=== PATIENT | female | born 1980 | race Caucasian/White ===

== ENCOUNTER → 2024-02-14 08:56 | Outpatient (BNVA) | payer OTHER, SELFPAY | PROVIDERS: PCP Family Medicine; Visit Provider Psychiatry & Neurology Neurology | DX: G45.9 Transient cerebral ischemic attack, unspecified (principal) | CPT/HCPCS: 36415; 81241; 82306; 82607; 82746; 83090; 83735; 83921; 84439; 84443; 84481; 85210; 85300; 85305; 85613; 85730; 86140; 86146; 86147; 86376 ==

== ENCOUNTER 2024-02-26 14:11 | Outpatient (CLI) | payer OTHER, SELFPAY ==
--- NOTE | 2024-02-26 14:15 | CTR_ITS ---
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 Exam focused on the arteries. 3D rendering (Not supervised by radiologist): MIP and/or 3D reconstructed images were created by the technologist. Total images: 189 Radiation optimization: All CT scans at this facility use at least one of these dose optimization techniques: automated exposure control; mA and/or kV adjustment per patient size (includes targeted exams where dose is matched to clinical indication); or iterative reconstruction. Contrast material: OMNI 350; Contrast volume: 100 ml; Contrast route: INTRAVENOUS (IV); COMPARISON: MR head wo con* [id number] 03/15/2023 4:14 PM RADIATION DOSE METRICS: Total DLP (mGy-cm): 1178.43 FINDINGS: ANTERIOR CIRCULATION: Right internal carotid artery: Intracranial segment is patent with no significant stenosis. No aneurysm. Right middle cerebral artery: No occlusion or significant stenosis. No aneurysm. Right anterior cerebral artery: No occlusion or significant stenosis. No aneurysm. Left internal carotid artery: Intracranial segment is patent with no significant stenosis. No aneurysm. Left middle cerebral artery: No occlusion or significant stenosis. No aneurysm. Left anterior cerebral artery: No occlusion or significant stenosis. No aneurysm. POSTERIOR CIRCULATION: Right vertebral artery: No occlusion or significant stenosis. No aneurysm. Left vertebral artery: No occlusion or significant stenosis. No aneurysm. Basilar artery: No occlusion or significant stenosis. No aneurysm. Right posterior cerebral artery: No occlusion or significant stenosis. No aneurysm. Left posterior cerebral artery: No occlusion or significant stenosis. No aneurysm. Brain: No definite mass, mass effect, or midline shift. Cerebral ventricles: No ventriculomegaly. Paranasal sinuses: Benign mucous retention cyst in the paranasal sinuses. Bones/joints: Unremarkable. No acute fracture. 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 Exam focused on the cervical segments of the vasculature. 3D rendering (Not supervised by radiologist): MIP and/or 3D reconstructed images were created by the technologist. Radiation optimization: All CT scans at this facility use at least one of these dose optimization techniques: automated exposure control; mA and/or kV adjustment per patient size (includes targeted exams where dose is matched to clinical indication); or iterative reconstruction. Contrast material: OMNI 350; Contrast volume: 100 ml; Contrast route: INTRAVENOUS (IV); COMPARISON: MR head wo con* [id number] 03/15/2023 4:14 PM RADIATION DOSE METRICS: Total DLP (mGy-cm): 1178.43 FINDINGS: Right common carotid artery: No stenosis. No dissection or occlusion. Right internal carotid artery: No stenosis of the extracranial segment. No dissection or occlusion. Right external carotid artery: No occlusion or stenosis of the origin. Left common carotid artery: No stenosis. No dissection or occlusion. Left internal carotid artery: No stenosis of the extracranial segment. No dissection or occlusion. Left external carotid artery: No occlusion or stenosis of the origin. Right vertebral artery: No stenosis. No dissection or occlusion. Left vertebral artery: No stenosis. No dissection or occlusion. Soft tissues: Normal. No significant soft tissue swelling. Bones/joints: No acute fracture. CT/CT angio headneck* [id number] IMPRESSION: 1. No acute intracranial pathology detected. 2. No hemodynamically significant stenosis, vascular occlusions, aneurysm, dissection, nor AV malformation. IMPRESSION: No stenosis or occlusion. REFERENCES: NASCET CRITERIA. The degree of stenosis in the cervical segment of the internal carotid artery is based on NASCET criteria. Normal is no stenosis. Mild is less than 50% stenosis. Moderate is 50-69% stenosis. Severe is 70% to 99% stenosis. Total occlusion is no detectable patent lumen.
[2024-02-26] MEDS: iohexol 350 mg/mL 500 mL Btl (per mL) IV (15:28)
== END 2024-02-26 14:12 | disposition home or self-care (01) ==
LOC: RAD 14:12
PROVIDERS: PCP Family Medicine; Visit Provider Psychiatry & Neurology Neurology
DX: G45.9 Transient cerebral ischemic attack, unspecified (principal)
CPT/HCPCS: 36415; 70496; 70498; 81241; 82306; 82607; 82746; 83090; 83735; 83921; 84439; 84443; 84481; 85210; 85300; 85305; 85613; 85730; 86140; 86146; 86147; 86376; Q9967

== ENCOUNTER 2024-03-05 12:45 | Outpatient (CLI) | payer OTHER, SELFPAY ==
--- NOTE | 2024-03-05 12:45 | USCV_ITS ---
Felicia Morales Age: 44 Gender: F : 1980 Exam Date: 03/05/2024 12:46 Ordering Phys: Amilcar Concepcion MD Technologist: CT Exam Location: [facility] [place]_ Indication: syncope,tia BP: 126 / 67 HR: 56 Rhythm: Sinus Technical Quality: Adequate MEASUREMENTS (Male / Female) Normal Values 2D ECHO LVOT Diameter 2.0 cm LV Ejection Fraction MOD 4C 58.9 % LV Ejection Fraction MOD 2C 49.3 % LV Ejection Fraction 2C AL 46.8 % LA Diameter 2.9 cm LA Sys Volume AL 56.7 cm cubed LA Sys Volume Index AL 24.5 cm cubed/m squared Aorta at Sinotubular Diameter 2.1 cm IVC Diameter 1.9 cm M-MODE LA Ao Ratio MM 1.4 AV Cusp Separation MM 2.4 cm DOPPLER AV Peak Velocity 159.0 cm/s LVOT Peak Velocity 124.0 cm/s AV Area Cont Eq vti 2.9 cm squared AV Area Cont Eq pk 2.5 cm squared MV Peak Velocity 109.0 cm/s MV Area PHT 3.4 cm squared Mitral E to A Ratio 1.7 TR Peak Velocity 63.0 cm/s TR Peak Gradient 1.6 mmHg Right Atrial Pressure 3.0 mmHg Pulmonary Artery Systolic Pressu 4.6 mmHg PV Peak Velocity 104.0 cm/s FINDINGS Left Ventricle Normal left ventricular size and systolic function, EF 59%..no regional wall motion abnormalities. Right Ventricle The right ventricle is normal in size and function. Right Atrium The right atrium is normal in size. Left Atrium The left atrium is normal in size. Mitral Valve No gross abnormalities noted Aortic Valve No gross abnormalities noted Tricuspid Valve No gross abnormalities noted Pulmonic Valve Trace pulmonary valve regurgitation. Pericardium Normal pericardium without effusion. Aorta Normal ascending aorta dimension. IVC The inferior vena cava appears normal. CONCLUSIONS Normal left ventricular size and systolic function, EF 59%..no regional wall motion abnormalities. Normal cardiac chamber sizes. No gross valvular abnormalities. No intracardiac masses. No pericardial effusion. No similar previous studies are available for comparison Dr Omer Kyle MD [facility] (Electronically Signed) Final Date: 06 March 2024 08:21 S
== END 2024-03-05 12:46 | disposition home or self-care (01) ==
PROVIDERS: PCP Family Medicine; Visit Provider Psychiatry & Neurology Neurology
DX: G45.9 Transient cerebral ischemic attack, unspecified (principal)
CPT/HCPCS: 93306

== ENCOUNTER → 2024-12-30 14:43 | Outpatient (BNVA) | payer OTHER, SELFPAY | PROVIDERS: PCP Family Medicine; Visit Provider Psychiatry & Neurology Neurology | DX: E55.9 Vitamin D deficiency, unspecified (principal) | CPT/HCPCS: 36415; 82306 ==